=== PATIENT | female | born 1950 | race Caucasian/White ===

== ENCOUNTER → 2016-09-24 16:34 | Outpatient (CLI) | payer MEDICARE, OTHER ==
[2011-07-22 07:36] VITALS: BMI 37.3
[~2016-09-24 16:34] MED LIST: BAYER CHEWABLE81 MG PO; CYMBALTA60 MG PO; MAXZIDE 75/501 TAB PO; SYNTHROID75 MCG PO; ZETIA10 MG PO
[2016-11-24 10:55] VITALS: BMI 38.5
== END | disposition home or self-care (01) ==
LOC: D.MAMMO 08:30
DX: R92.8 Other abnormal and inconclusive findings on diagnostic imaging of breast (principal)

== ENCOUNTER 2016-11-24 10:10 | Day surgery (SDC) | payer MEDICARE, OTHER ==
[~2016-11-24] VITALS: Ht 160 cm; Wt 98.4 kg
[2016-11-24] MEDS ORDERED: SYNTHROID75 MCG PO (10:43)
[2016-11-24] MEDS ORDERED: MAXZIDE 75/501 TAB PO (10:44)
[2016-11-24] MEDS ORDERED: BAYER CHEWABLE81 MG PO (10:44)
[2016-11-24] MEDS ORDERED: ZETIA10 MG PO (10:45)
[2016-11-24] MEDS ORDERED: CYMBALTA60 MG PO (10:45)
[2016-11-24 10:55] VITALS: BP 131/78; Ht 160 cm; Wt 98.4 kg
[2016-11-24 14:28] LABS: HEMATOCRIT 52.4 % (36.0-48.0); HEMOGLOBIN 17.7 g/dL (12-16); MCH 29.5 pg (26.0-34.0); MCHC 33.8 g/dL (31.0-37.0); MCV 87.3 fL (80.0-100.0); MEAN PLATELET VOLUME 11.3 fL (7.4-10.4); RDW 12.7 % (11.5-14.5); WBC 7.7 10x3/uL (4.8-10.8)
--- NOTE | 2016-11-24 16:06 | NUR ---
1600 IV DC WITH CATHER TIP INTACT
--- NOTE | 2016-11-27 09:40 | HP ---
PATIENT: BRCOK NERI MEDICAL RECORD: [id number] ACCOUNT: [id number] LOCATION:[facility] : 46 ADMISSION DATE: 11/24/16 HISTORY AND PHYSICAL EXAMINATION CHIEF COMPLAINT: History of colon polyps, in need of a surveillance colonoscopy. HISTORY OF PRESENT ILLNESS: The patient is here for a screening colonoscopy. Her primary care physician is Dr. Halie De Jesus. The risks, possible complications and alternatives to procedure were explained to the patient. She elects to proceed. SOCIAL HISTORY: She is a smoker. PAST MEDICAL AND SURGICAL HISTORY: TIA, hypothyroidism, on replacement therapy, hypertension, arthritis, and history of left breast biopsy. REVIEW OF SYSTEMS: Negative for renal disease or hepatitis. Negative for congestive heart failure or myocardial infarction. ALLERGIES: No known drug allergies. HOME MEDICINES: Aspirin, Cymbalta, Zetia, Synthroid, and triamterene/hydrochlorothiazide. PHYSICAL EXAMINATION: GENERAL: The patient does not appear acutely ill. She does not appear chronically ill. VITAL SIGNS: Reviewed. The entire physical examination was performed in the presence of a female nurse. HEAD: External ears appear normal. EYES: Extraocular movements are intact. NECK: Trachea is midline. CHEST: No intercostal retractions. PULMONARY: Nonlabored. No stridor. ABDOMEN: Nontender. EXTREMITIES: No peripheral cyanosis. IMPRESSION: History of colon polyps, in need of surveillance colonoscopy. PLAN: Will be surveillance colonoscopy. TRANSINT:[id number] Voice Confirmation ID: [id number] DOCUMENT ID: [id number] HISTORY AND PHYSICAL [id number] BROCK NERI ROBERT MD at 0940 CC: HALIE DE JESUS DO [id number] DICTATION DATE: 11/24/16 1414 [facility] [employer] TECHNICIAN: 11/24/16 1512 [facility] 11/24/16 [id number] [place] [address]
--- NOTE | 2016-11-27 09:40 | OP ---
PATIENT NAME: BROCK NERI MEDICAL RECORD: [id number] :46 LOCATION:D.OPS ADMISSION DATE: SURGEON: TERRY MONTEIRO MD DATE OF OPERATION: 11/24/2016 PREOPERATIVE DIAGNOSIS: Desires screening colonoscopy. POSTOPERATIVE DIAGNOSES: Desires screening colonoscopy with 7 colorectal polyps also 1 arteriovenous malformation. PROCEDURES: 1. Total colonoscopy to cecum. 2. Hot biopsy forceps polypectomies times 7. 3. Hot forceps cautery of an arteriovenous malformation. SURGEON: Terry Monteiro MD. ASSOCIATE DIRECTOR QA: None. BLOOD LOSS: Minimal. ANESTHESIA: IV sedation. COMPLICATIONS: None. The reason for the anesthesia staff being present during the procedure includes anxiety regarding the procedure. ENDOSCOPIC COURSE: The patient was conveyed to the endoscopy suite electively on 11/24/2016. An IV sedation was induced by the anesthesia staff. The patient was placed in the Carcamo position. A digital rectal examination was performed. A colonoscope was inserted through the anus. It was passed easily advanced to the cecum. I slowly withdrew the endoscope. The prep was excellent. I irrigated and aspirated extensively. I dragged the folds. The pullback was greater than a 14-minute pullback. A 7 hot biopsy forceps polypectomies were performed. All of the polyps were sessile. The most worrisome one was in front of the fold in the ascending colon. Many of these polyps were better seen with narrow band imaging rather than with direct imaging. There was one arteriovenous malformation. This was grasped with the hot biopsy forceps and cauterized and then released. This ablated this arteriovenous malformation. The pullback was greater than a 14-minute pullback. A retroflexed view was obtained in the rectum. This revealed a perianal polyp, which was removed. I then unretroflexed the scope and removed it under direct vision. I will see the patient in my office in 2-3 weeks. I will plan for her next colonoscopy to be 3 years. TRANSINT:[id number] Voice Confirmation ID: [id number] DOCUMENT ID: [id number] OPERATIVE REPORT [id number] BROCK NERI TERRY MONTEIRO MD at 0940 CC: HALIE DE JESUS DO [id number] DICTATION DATE: 11/24/16 153 SCIENTIFIC AIDE: 11/24/162047 [facility] 11/24/16 [facility] [address] [id number]
== END 2016-11-24 16:00 | disposition home or self-care (01) ==
LOC: D.OPS 10:10
PROVIDERS: Anesthesiology
DX: Z12.11 Encounter for screening for malignant neoplasm of colon (principal); K63.5 Polyp of colon; K62.1 Rectal polyp; Q27.33 Arteriovenous malformation of digestive system vessel; F17.200 Nicotine dependence, unspecified, uncomplicated; Z86.73 Personal history of transient ischemic attack (TIA), and cerebral infarction without residual deficits; E03.9 Hypothyroidism, unspecified; I10 Essential (primary) hypertension; M19.90 Unspecified osteoarthritis, unspecified site; Z79.82 Long term (current) use of aspirin; Z79.899 Other long term (current) drug therapy

== ENCOUNTER → 2017-05-25 07:06 | Outpatient (CLI) | payer MEDICARE, OTHER ==
[2016-11-24 10:55] VITALS: BMI 38.5
== END | disposition home or self-care (01) ==
LOC: D.RAD 07:06
DX: R13.10 Dysphagia, unspecified (principal)

== ENCOUNTER → 2017-05-27 11:27 | Outpatient (CLI) | payer MEDICARE, OTHER ==
[2016-11-24 10:55] VITALS: BMI 38.5
== END | disposition home or self-care (01) ==
LOC: D.CT 11:27
DX: R13.10 Dysphagia, unspecified (principal)

== ENCOUNTER → 2017-11-30 16:38 | Outpatient (CLI) | payer MEDICARE, OTHER ==
[2016-11-24 10:55] VITALS: BMI 38.5
== END | disposition home or self-care (01) ==
LOC: D.MAMMO 08-31 11:45
DX: Z12.31 Encounter for screening mammogram for malignant neoplasm of breast (principal)

== ENCOUNTER → 2017-12-21 17:38 | Outpatient (CLI) | payer MEDICARE, OTHER ==
[2016-11-24 10:55] VITALS: BMI 38.5
== END | disposition home or self-care (01) ==
LOC: D.MAMMO 11:00
DX: R92.8 Other abnormal and inconclusive findings on diagnostic imaging of breast (principal)

== ENCOUNTER 2020-01-30 07:43 | Day surgery (SDC) | payer MEDICARE, OTHER ==
[~2020-01-30] VITALS: Ht 160 cm; Wt 79.1 kg
--- NOTE | ~2020-01-30 | HP ---
PATIENT: BROCK NERI MEDICAL RECORD: [id number] ACCOUNT: [id number] LOCATION:[facility] : 46 ADMISSION DATE: 01/30/20 PCP: HALIE DE JESUS DO HISTORY AND PHYSICAL EXAMINATION CHIEF COMPLAINT: History of colon polyps. HISTORY OF PRESENT ILLNESS: I did her last colonoscopy back in 2016. At that time, she had a number of colon polyps, which I removed. One of the most worrisome was from a fold in the ascending colon. She also had an arteriovenous malformation, which I cauterized. The pathology on the ascending colon polyp was a hyperplastic polyp. The patient states she has had some melena recently. HOME MEDICINES: Reviewed. ALLERGIES: No known drug allergies. SOCIAL HISTORY: She is a smoker. PAST MEDICAL AND SURGICAL HISTORY: Pulmonary thromboembolism, hypertension, TIA, gastroesophageal reflux, hypothyroidism, on replacement therapy, history of left breast biopsy, history of . PHYSICAL EXAMINATION: GENERAL: The patient does not appear acutely ill. She does not appear chronically ill. VITAL SIGNS: Reviewed. EARS: External ears appear normal. EYES: Extraocular movements are intact. NECK: Trachea is midline. CHEST: No intercostal retractions. PULMONARY: Nonlabored and no stridor. IMPRESSION: 1. Melena. 2. History of colon polyps. PLAN: Surveillance colonoscopy. TRANSINT:[id number] Voice Confirmation ID: [id number] DOCUMENT ID: [id number] ISAIAH MONTEIRO MD CC: [id number] DICTATION DATE: 01/30/20 1002 CONTRACTING ANALYST: 01/30/20 1334 [facility] 01/30/20 [id number] [id number]
--- NOTE | ~2020-01-30 | OP ---
PATIENT NAME: BROCK NERI MEDICAL RECORD: [id number] :46 LOCATION:D.OPS ADMISSION DATE: SURGEON: ISAIAH MONTEIRO MD DATE OF OPERATION: 01/30/2020 PREOPERATIVE DIAGNOSES: 1. History of colon polyps. 2. Melena. POSTOPERATIVE DIAGNOSES: 1. History of colon polyps 2. Melena. 3. Moderate left-sided diverticulosis. 4. 18 minute polyps. 5. 1 large polyp. PROCEDURES: 1. Total colonoscopy to cecum. 2. Hot biopsy forceps polypectomy times 1. 3. Argon plasma coagulation ablation of 18 colorectal polyps. SURGEON: Isaiah Monteiro MD CONTRACTS INTERN: None. BLOOD LOSS: Minimal. ANESTHESIA: IV sedation. COMPLICATIONS: None. ENDOSCOPIC COURSE: The patient was conveyed to endoscopy suite electively on 01/30/2020. IV sedation was induced by the anesthesia staff. The patient was placed in the Carcamo position. A digital rectal examination was performed. A colonoscope was inserted through the anus. It was easily advanced to the cecum. The prep was adequate. I slowly withdrew the endoscope. I utilized normal imaging as well as narrow band imaging. I identified 1 polyp which was a 1.0 cm polyp, which was sessile and was removed in its entirety utilizing the hot biopsy forceps polypectomy technique. I then continued to withdraw the endoscope. I saw small polyps that I did not think warranted pathologic examination. Instead, I utilized the argon plasma skid man with the right colon setting in the forced mode to ablate these polyps. A retroflex view was obtained in the rectum. I then unretroflexed the scope and removed it under direct vision. The pullback was greater than an 18-minute pullback. I will see her in the office in 2-3 weeks. I will plan for her next colonoscopy to take place in 3 years. TRANSINT:[id number] Voice Confirmation ID: [id number] DOCUMENT ID: [id number] OPERATIVE REPORT [id number] BROCK NERIISAIAH DAVIS MD CC: HALIE DE JESUS DO [id number] DICTATION DATE: 01/30/20 1042 EARLY CHILDHO[employer] EDUCATION SPECIALIST: 01/30/20 2211 [facility] 01/30/20 [place] [address]
[2020-01-30 08:29] LABS: ANION GAP 14.5 mmol/L (8-16); CALCIUM 10.2 mg/dL (8.5-10.1); CARBON DIOXIDE 28.2 mmol/L (21.0-32.0); CREATININE - SERUM 1.6 mg/dL (0.6-1.3); POTASSIUM - SERUM 3.7 mmol/L (3.5-5.1)
[2020-01-30 08:34] VITALS: BP 125/71; Ht 160 cm; Wt 79.1 kg
[2020-01-30 08:44] LABS: BASOPHILS 0.1 % (0-2); EOSINOPHILS 2.7 % (0-7); HEMATOCRIT 55.3 % (36.0-48.0); IMMATURE GRANULOCYTES 0.2 % (0-5); LYMPHOCYTES 19.3 % (15-50); MCH 30.3 pg (26.0-34.0); MCHC 34.4 g/dL (31.0-37.0); MCV 88.1 fL (80.0-100.0); MEAN PLATELET VOLUME 10.2 fL (7.4-10.4); MONOCYTES 6.9 % (2-11); NEUTROPHILS 70.8 % (40-80); PLATELET COUNT 262 10x3/uL (130-400); RBC 6.28 10x6/uL (4.00-5.40); RDW 12.6 % (11.5-14.5); WBC 8.6 10x3/uL (4.8-10.8)
--- NOTE | 2020-01-30 11:35 | NUR ---
PT LEAVING OPS AT THIS TIME VIA WC, NAD NOTED.
--- NOTE | 2020-01-30 11:39 | NUR ---
PT DC INSTRUCTIONS REVIEWED AT THIS TIME, PT VERBALIZES UNDERSTANDING, PT IV REMOVED, INTACT, NO REDNESS OR SWELLING NOTED AT SITE.
== END 2020-01-30 11:34 | disposition home or self-care (01) ==
LOC: D.OPS 07:43
PROVIDERS: Anesthesiology; ATTEND Surgery
DX: Z86.010 Personal history of colon polyps (principal); K92.1 Melena; K63.5 Polyp of colon